=== PATIENT | female | born 1990 | race Caucasian/White ===

== ENCOUNTER 2025-03-10 21:09 | Emergency (ER) | payer MEDICAID, SELFPAY ==
[2025-03-10 21:27] VITALS: BP 97/68; PULSE 96; RESP 18; TEMP 36.7; O2SAT 96; BMI 44.6
[2025-03-10 21:55] LABS: MANUAL DIFF FLAG NO
[2025-03-10 21:56] LABS: Hematocrit 40.9 % (37.0-47.0); Hemoglobin 14.2 g/dl (12.0-16.0); Imm Gran Abs Auto 0.04 X10*3/uL (0.00-0.03); Imm Gran Pct Auto 0.3 % (0.0-0.4); Lymphocytes Absolute Auto 3.4 X10*3/uL (1.2-4.9); Mean Corpuscular HGB Conc 34.7 g/dl (31.0-35.0); Mean Corpuscular Hemoglobin 30.7 pg (27.0-33.0); Mean Corpuscular Volume 88.5 fL (80.0-98.0); NRBC Abs Auto 0.000 X10*3/uL (0.0-0.012); NRBC Pct Auto 0.0 /100WBC (0.0-0.2); Platelet Count 263 X10*3/uL (160-400); Red Blood Count 4.62 X10*6/uL (4.20-5.50); White Blood Count 12.3 X10*3/uL (4.8-10.8)
[2025-03-10 21:58] LABS: UPreg QC Valid YES
[2025-03-10 22:16] LABS: Alanine Aminotransferase 70 U/L (0-31); Albumin Level 4.4 g/dL (3.5-5.0); Alkaline Phosphatase 81 U/L (39-117); Anion Gap 11 (12-20); Aspartate Amino Transferase 51 U/L (5-31); Blood Urea Nitrogen 16 mg/dL (9-16); Calcium 9.1 mg/dL (8.4-10.2); Carbon Dioxide 24 mmol/L (22-29); Chloride 109 mmol/L (96-108); Creatinine Clr Calc Pharmacy 120.7; Estimated Glomerular Filt Rate > 60; Lipase 33 U/L (8-78); Potassium 3.6 mmol/L (3.3-5.1); Sodium 140 mmol/L (135-145); Total Protein 7.6 g/dL (6.5-8.0)
== END 2025-03-11 03:51 | disposition left against medical advice (07) ==
LOC: HO.ED 03-11 03:32
PROVIDERS: Emergency Provider Emergency Medicine
DX: R10.9 Unspecified abdominal pain (principal); R50.9 Fever, unspecified; R51.9 Headache, unspecified; Z53.21 Procedure and treatment not carried out due to patient leaving prior to being seen by health care provider
CPT/HCPCS: 36415; 80053; 81025; 83690; 85025; 99281

== ENCOUNTER 2025-03-31 09:43 | Emergency (ER) | payer MEDICAID, SELFPAY ==
--- NOTE | ~2025-03-31 | XR_ITS ---
EXAMINATION: XR CHEST CLINICAL INFORMATION: shortness of breath, asthma COMPARISON: None available. TECHNIQUE: 2 views of the chest were obtained. FINDINGS: The cardiac, hilar, and mediastinal contours are normal. The lungs are clear bilaterally. There is no pneumothorax or pleural effusion. There is no focal osseous or soft tissue abnormality. XR/XR chest 2V IMPRESSION: Normal chest. Electronically signed by: Jeremiah Ortiz MD 03/31/2025 10:35 AM EDT
[2025-03-31 10:13] VITALS: BP 114/56; PULSE 87; RESP 18; TEMP 37; O2SAT 98; BMI 45.5
--- NOTE | 2025-03-31 10:15 | ED_ITS ---
HPI - General Adult General Chief complaint: Dyspnea Stated complaint: asthma Related Data Allergies Allergy/AdvReac Type Severity Reaction Status Date / Time latex Allergy Rash Verified 03/31/25 10:16 [facility] Social History Social History Advance Directives: No Advance Directives Information Provided: No Physical Exam ED Vital Signs: BMI result Body Mass Index 45.5 Course Course Course Narrative: This is a Rapid Medical Examination (RME) performed by Cele Fine PA-C in triage. Full HPI, ROS, assessment and treatment plan per primary provider in the Main ED. Hx: 34 yo F here w/ cocnerns of asthma exacerbation. ran out of her rescue inhaler 1 week ago. no known sick contacts. PE/vitals: no respiratory distress, no tripoding, b/l expiratory wheezes Plan: viral swabs, CXR, bronch protocol Reevaluation(s) Reevaluation #1: Patient left the emergency department before myself or any of the other clinicians could review or explain physical exam findings, test results, need or lack there of for additional testing, treatment options, or a treatment plan. Medications Administered Discontinued Medications Generic Name Dose Route Start Last Admin Trade Name Freq PRN Reason Stop Dose Admin Albuterol Sulfate 8 puff 03/31/25 10:44 03/31/25 10:47 Albuterol Sulfate 90 Mcg 8 Gm Inhaler INHALE 03/31/25 10:45 8 puff ONCE ONE Administration Medical Decision Making Lab Data Labs: Lab Results 03/31/25 Range/Units 10:29 Influenza Type A (PCR) NEGATIVE (Negative) Influenza Type B (PCR) NEGATIVE (Negative) RSV RNA Qual (PCR) NEGATIVE (Negative) SARS-CoV-2 RNA (RT-PCR) NEGATIVE (Negative) Discharge Plan Discharge Clinical Impression: Asthma with exacerbation Patient Disposition: Left Without Being Seen Discharge Date/Time: 03/31/25 14:39
[2025-03-31] MEDS: Albuterol Sulfate 90 MCG 8 GM INHALER 8 PUFF INHALE (10:47)
[2025-03-31 10:49] VITALS: PULSE 90; RESP 21; O2SAT 99
[2025-03-31 11:16] LABS: Resp Syncy Virus RNA Qual PCR NEGATIVE (Negative); SARS COV2 PCR INHOUSE NEGATIVE (Negative)
--- NOTE | 2025-03-31 11:21 | PC.NURSE ---
patient called from waiting room , no answer
--- OUTSIDE RECORDS SUMMARY | 2025-03-31 14:59 | XMS_ITS ---
Author Name [facility] Organization Unknown History of Medication Use Medication Directions Dispensed Refills Start Date End Date Stat us oxyCODONE (ROXICODONE) 10 mg immediate release tablet Take 0.5 tablets (5 mg total) by mouth 4 times daily (every 6 hours) as needed for severe pain. Max Daily Amount: 20 mg 10/21/2021 active acetaminophen (TYLENOL) 325 MG tablet Take 3 tablets (975 mg total) by mouth 3 times daily (every 8 hours) as needed for mild pain. 10/19/2021 active aluminum-magnesium hydroxide-simethicone (MYLANTA-MAX) 400-400-40 mg/5 mL suspension Take 15 mL by mouth 4 times daily (every 6 hours) as needed for indigestion or heartburn. 10/19/2021 active gabapentin (NEURONTIN) 300 MG capsule Take 1 capsule (300 mg total) by mouth 3 (three) times a day. 10/19/2021 active PANTOprazole (PROTONIX) 40 MG EC tablet Take 1 tablet (40 mg total) by mouth daily. 10/19/2021 active Allergies Allergen Reaction Severity Comment Documented Date Source Statu s SHELLFISH-DERIVE D PRODUCTS ANAPHYLAXIS 10/14/2021 [facility] active SHRIMP ANAPHYLAXIS Throat closses 10/12/2021 [facility] ac tive PEANUTS ANAPHYLAXIS 02/18/2019 [facility] active LATEX RASH/DERMATITIS [facility] Problems Problem Status Onset Date Problem Type Date of Resoluti on Source Muscle strain active 2019-02-19 ProblemAct [facility] T Right knee pain active 2021-10-09 ProblemAct [facility] Sepsis active 2021-10-10 ProblemAct [facility] Encounters Encounter Type Encounter Reason Primary Diagnosis Location Date Ambulatory Acute hematogeno us osteomyelitis, right femur [facility] 11/25/2021 Ambulatory Acute hematogeno us osteomyelitis, right femur [facility] 11/25/2021 [facility] 10/27/2021 [facility] 10/21/2021 Inpatient Pain in right knee [facility] 10/09/2021 Care Team Organization Name Specialty Phone Email Start Date End [facility] 12/12/2023 01/14/2025 [facility] 05/06/2023 024 [facility] 02/24/2023 [facility] TIFFANIE DENNY IS Primary Care 11/25/2021 04/01/2024 [facility] Samuel Denny [facility] 10/09/2021 12/08/2021 [facility] NO PCP Primary Care 10/09/2021 12/08/2021
--- OUTSIDE RECORDS SUMMARY | 2025-03-31 14:59 | XMS_ITS | Clinical Summary ---
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 84 tablet 2 Active aluminum-magnes ium hydroxide-simet hicone (MYLANTA-MAX) 400-400-40 mg/5 mL suspensionIndic ations:Staphylo coccal arthritis of right knee (HCC) Take 15 mL by mouth 4 times daily (every 6 hours) as needed for indigestion or heartburn. 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 30 tablet 2 Active ceFAZolin (ANCEF) 2 GM/20ML premixed syringeIndicati ons:Staphylococ jimbo arthritis of right knee (HCC) Infuse 20 mL (2 g total) into a venous catheter 3 times daily (every 8 hours). 1 each 2 Active gabapentin (NEURONTIN) 300 MG capsuleIndicati ons:Staphylococ jimbo arthritis of right knee (HCC) Take 1 capsule (300 mg total) by mouth 3 (three) times a day. 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 43 g 2 Active enoxaparin (LOVENOX) 40 MG/0.4ML injectionIndica tions:Staphyloc occal arthritis of right knee (HCC) Inject 0.4 mL (40 mg total) under the skin twice daily (every 12 hours). 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 Max Daily Amount: 20 mg 20 tablet 2 Active Active Problems Problem Noted Date Diagnosed Date Right knee pain 10/09/2021 Overview (10/14/2021): Added automatically from request for surgery [id number] Muscle strain 02/19/2019 Resolved Problems Problem Noted Date Diagnosed Date Resolved Date Sepsis 10/10/2021 10/26/2023 Social History Tobacco Use Types Packs/Day Years Used Date Smoking Tobacco: Never Smokeless Tobacco: Never Comments Unknown Sex and Gender Information Value Date Recorded Sex Assigned at Not on file Legal Sex Female 10:00 PM EDT Gender Identity Not on file Sexual Orientation Not on file Last Filed Vital Signs Vital Sign Reading Time Taken Comments Blood Pressure 125/70 12/08/2021 12:10 PM EDT Pulse 90 12/08/2021 12:10 PM EDT Temperature 36.4 C (97.6 F) 12/08/2021 12:10 PM EDT Respiratory Rate 18 12/08/2021 12:10 PM EDT Oxygen Saturation 98% 12/08/2021 12:10 PM EDT Inhaled Oxygen Concentration - - Weight 109 kg (241 lb) 11/25/2021 2:19 PM EDT Height 160 cm (5' 3 ) 11/25/2021 2:19 PM EDT Body Mass Index 42.69 11/25/2021 2:19 PM EDT Plan of Treatment Health Maintenance Due Date Last Done Comments Hepatitis C Virus Screening 1990 HIV Screening 2003 DTaP/Tdap/Td Vaccines (1 - Tdap) 2009 Hepatitis B Vaccines (1 of 3 - 19+ 3-dose series) 2009 Pap Smear (Ages 21-65) 2011 HPV Vaccines (1 - 3-dose SCDM series) 2017 COVID-19 Vaccine ( - 2023- season) 2024 Influenza Vaccine 03/14/2025 05/15/2019, , 06/26/2015, Additional history exists Pneumococcal Vaccine: Pediatric (0-5 Years) and At-Risk Patients (6 to 49 Years) Aged Out No longer eligible based on patient's age to complete this topic Insurance [facility]IC[place] OUT OF NETWORK COMMERCIAL [facility] Advance Directives * Full Code (Latest Code Status on File) Date Activated Date Inactivated Comments 10/14/2021 5:23 PM * Full Code Date Activated Date Inactivated Comments 10/10/2021 6:40 AM 10/14/2021 5:23 PM Question Answer Comments Decision Thoroughly Discussed with: Patient Care Teams Grants Director Relationship Specialty Start Date End Date Samuel Rosales MD PCP - General Internal Medicine 10/10/21
--- OUTSIDE RECORDS SUMMARY | 2025-03-31 14:59 | XMS_ITS | Clinical Summary ---
Author Organization [facility] Address [address] [place] [address] Care Team Providers Care Burner Hand Name Role Phone Samuel Rosales MD Primary Care Provider [phone] Allergies Active Allergy Reactions Criticality Noted Date Comments Latex Rash Low 02/18/2019 Peanuts Anaphylaxis High 02/18/2019 Medications Medication Sig Dispensed Refills Start Date End Date Status diclofenac (VOLTAREN) 50 MG EC tablet Take 1 tablet (50 mg total) by mouth 2 (two) times a day. 20 tablet 0 09/21/2021 Active methocarbamol (ROBAXIN) 750 MG tabletIndications:Ri ght leg pain Take 1 tablet (750 mg total) by mouth 3 (three) times a day as needed (muscle spasm). 12 tablet 0 09/24/2021 Active naproxen (NAPROSYN) 500 MG tablet Take 1 tablet (500 mg total) by mouth 2 (two) times a day with meals. 20 tablet 0 10/01/2021 Active lidocaine (LIDODERM) 5 % Place 1 patch onto the skin daily. Remove & Discard patch within 12 hours or as directed by MD 30 patch 0 10/01/2021 Active traMADol (ULTRAM) 50 MG tablet Take 50 mg by mouth every 6 (six) hours as needed for pain. 8 tablet 0 10/01/2021 Active ibuprofen 400 MG tabletIndications:Ac christian pain of right knee Take 1.5 tablets (600 mg total) by mouth every 8 (eight) hours as needed for pain. 30 tablet 0 10/04/2021 Active Active Problems Problem Noted Date Diagnosed Date Class 3 severe obesity due t o excess calories without serious comorbidity with body mass index (BMI) of 45.0 to 49.9 in adult 02/20/2020 Overview: Considering sleeve gastrectomy 02/2020 Gallstones 11/13/2013 Asthma 12/21/2010 Social History Tobacco Use Types Packs/Day Years Used Date Smoking Tobacco: Never Assessed Sex and Gender Information Value Date Recorded Sex Assigned at Female 06/10/2021 1:49 PM EDT Gender Identity Not on file Sexual Orientation Not on file Job Start Date Occupation Industry Not on file Not on file Not on file Last Filed Vital Signs Vital Sign Reading Time Taken Comments Blood Pressure 110/73 10/04/2021 9:33 AM EST Pulse 82 10/04/2021 9:33 AM EST Temperature 36.6 C (97.8 F) 10/04/2021 9:33 AM EST Respiratory Rate 18 10/04/2021 9:33 AM EST Oxygen Saturation 100% 10/04/2021 9:33 AM EST Inhaled Oxygen Concentration - - Weight 112.9 kg (249 lb) 10/05/2021 12:33 PM EST Height 160 cm (5' 3 ) 11/17/2021 2:01 PM EDT Body Mass Index 44.11 10/05/2021 12:33 PM EST Plan of Treatment Health Maintenance Due Date Last Done Comments Hepatitis C Screening 1990 COVID-19 Vaccine (#1) 01/19/1991 Depression Screening 2002 BMI Counseling 2008 Preventative Health Evaluation 2008 Cervical Cancer Screening (Pap Smear) 2011 DTap / Tdap / Td (3 - Td or Tdap) 12/21/2020 12/21/2010, 06/05/2003 Influenza Vaccine (#1) 2025 9, 09/01/2016, 06/26/2015, Additional history exists Hepatitis B Vaccines Completed 11/16/1995, 03/14/1995, 10/17/1994 Pneumococcal Vaccine Aged Out No long er eligible based on patient's age to complete this topic RSV Ped < 20 months Aged Out No longe r eligible based on patient's age to complete this topic Care Teams Burner Hand Relationship Specialty Start Date End Date Samuel Rosales MD PCP - General Internal Medicine 10/01/21
== END 2025-03-31 14:39 | disposition left against medical advice (07) ==
LOC: HO.ED 14:13
PROVIDERS: Physician Assistant Medical; Emergency Provider Emergency Medicine
DX: J45.901 Unspecified asthma with (acute) exacerbation (principal); R06.02 Shortness of breath
CPT/HCPCS: 71046; 87637; 94640; 99283; 99284

== ENCOUNTER → 2025-03-31 10:16 | Outpatient (BNV) | payer MEDICAID, SELFPAY | PROVIDERS: Visit Provider Radiology Diagnostic Radiology | DX: R06.02 Shortness of breath (principal); J45.909 Unspecified asthma, uncomplicated | CPT/HCPCS: 71046 ==

== ENCOUNTER 2025-06-17 17:23 | Emergency (ER) | payer OTHER, SELFPAY ==
--- NOTE | ~2025-06-17 | XR_ITS ---
CLINICAL HISTORY: cough 1 view chest x-ray Comparison: CR/SR - XR CHEST 2 VIEWS - 03/31/25 10:29 EDT Findings: The lungs are clear. Normal size heart. No acute fracture. IMPRESSION: 1. No acute findings. This document has been electronically signed by: Dina Wisdom MD on 06/17/2025 22:04:04
[2025-06-17 17:33] VITALS: BP 149/74; PULSE 86; RESP 20; TEMP 36.7; O2SAT 96; BMI 45.2
--- NOTE | 2025-06-17 17:35 | ED.GENADULT ---
HPI - General Adult General Chief complaint: Upper Respiratory Symptoms Stated complaint: left side of face and throat hurt Time Seen by Provider: 06/17/25 21:01 Source: patient Limitations: no limitations History of Present Illness ED Provider: Laura Hale PA-C HPI narrative: 34-year-old female presents with cough and cold symptoms x3 days. Associated dry repetitive cough, sore throat, left ear pain and nasal congestion. Denies known fever. The patient does not use tobacco. Related Data Previous Rx's ?Medication ?Instructions ?Recorded amoxicillin 500 mg capsule 500 mg PO Q12H #19 caps 06/17/25 Allergies Allergy/AdvReac Type Severity Reaction Status Date / Time latex Allergy Rash Verified 06/17/25 17:37 Review of Systems Review of Systems: Yes all other systems are reviewed and are negative Constitutional: Constitutional: Denies fatigue, Denies fever(s) and Reports malaise ENT: Reports otalgia, Reports nasal congestion and Reports sore throat Cardiovascular: Cardiovascular: Denies chest pain and Reports dyspnea Respiratory: Respiratory: Reports chest congestion, Reports cough, Reports dyspnea and Denies wheezing Endocrine: Endocrine: Denies fatigue Allergic/Immunologic: Allergic/Immunologic: Denies wheezing [facility] Past Medical History Attestation statement: The following information was validated with the patient. Social History Social History Smoked in Last 30 Days: Yes Substance Use Type: Marijuana Advance Directives: No Advance Directives Information Provided: No Do you have a plan to hurt others: No Plan Physical Exam ED Vital Signs: Vital Signs - 24 hr 06/17/25 17:33 06/17/25 21:00 06/17/25 22:27 Temperature 98.1 F 97.9 F Pulse Rate 86 95 68 Respiratory Rate 20 18 18 Blood Pressure 149/74 H 102/53 L 125/59 L Pulse Oximetry 96 96 98 Oxygen Delivery Method Room Air Room Air Room Air BMI result Body Mass Index 45.2 Const Other: Alert well-appearing Orientation/consciousness: patient oriented x3 HENMT Other: Oropharynx is erythematous without exudate uvula midline no sublingual fluctuance no swelling inferior to the jawline. The left TM is opaque bulging with the overlying erythema, the entire exam was uncomfortable positive tragal tenderness Resp Other: Lungs clear to auscultation no wheezing Effort & Inspection: normal respiratory effort Cardio Other: Normal peripheral perfusion Skin Other: Warm dry no rash Neuro General: patient oriented x3, gait normal, no focal motor deficits and CN's II-XI intact bilaterally Psych Other: Cooperative Course Course Course Narrative: This is a rapid medical exam performed by Ronal Mace NP: Additional HPI, ROS, PE not included below will be deferred to primary provider. Patient is a 34y/o F presenting with complaint of left ear and facial pain and sore throat for a few days. Also reports cough and congestion. Plan: strep and viral swabs Medications Administered Discontinued Medications Generic Name Dose Route Start Last Admin Trade Name Ke PRN Reason Stop Dose Admin Amoxicillin 500 mg 06/17/25 21:23 06/17/25 22:13 Amoxicillin 500 Mg Capsule PO 06/17/25 21:24 500 mg ONCE ONE Administration Dexamethasone Sodium Phosphate 10 mg 06/17/25 21:23 06/17/25 22:13 Dexamethasone Sod Phosphate 10 Mg/Ml Vial PO 06/17/25 21:24 10 mg ONCE ONE Administration Ketorolac Tromethamine 15 mg 06/17/25 21:23 06/17/25 22:13 Ketorolac Tromethamine 15 Mg/Ml Vial IM 06/17/25 21:24 15 mg ONCE ONE Administration Medical Decision Making Medical Decision Making MDM Narrative: 34-year-old female presents with cough and cold symptoms x3 days. Associated dry repetitive cough, sore throat, left ear pain and nasal congestion. Denies known fever. The patient does not use tobacco. No relevant chronic issues History: Per patient I have considered the following differential diagnoses: Bronchitis, pneumonia, viral syndrome, strep pharyngitis, SOURCING ASSOCIATE, RPA, om, OE, serous otitis Plan: Viral panel and strep screen ordered from triage, adding on a chest x-ray. Doubtful to be pneumonia given the wide constellation of symptoms, there was no evidence of RPA or SOURCING ASSOCIATE on my exam, she does have otitis media as well. We will treat accordingly. Giving a dose of Decadron for her throat inflammation and swelling, starting on amoxicillin, giving Toradol for pain. I have independently reviewed the following tests: Labs: Viral panel negative, strep screen neg Chest x-ray:Findings: The lungs are clear. Normal size heart. No acute fracture. IMPRESSION: 1. No acute findings. Differential Diagnosis Differential Diagnoses: The differential diagnosis associated with the presentation includes See medical decision-making Admission/Observation Consideration of admission/observation: Escalation of care including admission/observation considered Not applicable Lab Data MDM Lab Attestation statement: I reviewed the patient's lab results. Labs: Lab Results 06/17/25 Range/Units 17:57 COVID-19 ([facility]) Negative (Negative) COVID-19 Clin Com See Note Influenza Type A (LUIS) Negative (Negative) Influenza Type B (LUIS) Negative (Negative) Influenza A & B Note See Note S. pyogenes GrpA LUIS Negative (Negative) Radiology Impression Discussion of test interpretation with radiology: I have reviewed the radiologist's reading. Discharge Plan Discharge Clinical Impression: Otitis media, Pharyngitis Patient Disposition: Home, Self-Care Instructions: Pharyngitis (ED), Ear Infection (ED) Additional Instructions: You were tested for COVID , and influenza, the viral panel was negative. You were screened for strep throat, that was negative as well. The chest x-ray is clear, you do not have pneumonia. You were found to have an ear infection. See home care instructions. Take the amoxicillin as directed. You were given medication today to help alleviate your throat pain. You can continue to use [id number] ibuprofen 600 mg taken every 6 hours with food. Warm saltwater gargles are very beneficial to alleviate throat pain. Follow up with your primary care as needed. You should also be taking an [id number]-[id number] antihistamine, either Claritin or Zyrtec, to help alleviate the fluid within the inner ear, that causes the pressure and pain. Prescriptions: New amoxicillin 500 mg capsule 500 mg PO Q12H Qty: 19 0RF Stand Alone Forms: Work/School Release Interventions: ED Discharge Assessment Last Done: 06/17/25 22:27 Discharge Date/Time: 06/17/25 22:28 Print Language: Portuguese
[2025-06-17 18:21] LABS: COVID-19 Test Negative (Negative); IDNOW Serial# 08D9AD1C; IDNOW Serial# 55D5AD1C; Strep A Nucleic Acid Negative (Negative)
[2025-06-17 18:22] LABS: IDNOW Serial# 58CA691E; Influenza B2 Negative (Negative)
[2025-06-17 21:00] VITALS: BP 102/53; PULSE 95; RESP 18; O2SAT 96
--- OUTSIDE RECORDS SUMMARY | 2025-06-17 21:11 | XMS_ITS | Clinical Summary ---
Author Organization [facility] Address [address] [place] [address] Care Team Providers Care Credit Historian Name Role Phone Samuel Rosales MD Primary Care Provider Un available Allergies Active Allergy Reactions Criticality Noted Date Comments Latex Rash/Dermatitis Low 02/18/2019 Peanuts Anaphylaxis High 02/18/2019 Shellfish Protein-Containing Drug Products Anaphylaxis High 10/14/2021 Shrimp Anaphylaxis High 10/12/2021 Throat closses Medications [...] (10/14/2021): Added automatically from request for surgery [id number] Muscle strain 02/19/2019 Resolved Problems Problem Noted [...] series) 2009 Pap Smear (Ages 21-65) 2011 Influenza Vaccine 03/14/2025 05/15/2019, , 06/26/2015, Additional history exists COVID-19 Vaccine ( season) 2025 HPV Vaccines (No Doses Required) Completed Pneumococcal Vaccine: Pediatric (0-5 Years) and At-Risk Patients (6 to 49 Years) Aged Out No longer eligible based on patient's age to complete this topic Insurance [facility] [place] MEDICARE OUT OF NETWORK Member Subscriber Plan / Payer (Ef fective 2014-Present) Name:Trish Denton Relation to Subscriber:Self Name:Trish Denton Payer ID:Not on file Group ID:Not on file Type:Not on file Address: . [address] [facility] Advance Directives * Full Code (Latest Code Status on File) Date Activated Date Inactivated Comments 10/14/2021 5:23 PM * Full Code Date Activated Date Inactivated Comments 10/10/2021 6:40 AM 10/14/2021 5:23 PM Question Answer Comments Decision Thoroughly Discussed with: Patient Care Teams Credit Historian Relationship Specialty Start Date End Date Samuel Rosales MD PCP - General Internal Medicine 10/10/21
--- OUTSIDE RECORDS SUMMARY | 2025-06-17 21:11 | XMS_ITS | Encounter Summary ---
Author Organization [facility] Address [address] [place] [address] Care Team Providers Care Extra Hand Name Role Phone Samuel Rosales MD Primary Care Provider Un available Encounter Details Date Type Department Care Team (Late st Contact Info) Description 01/21/2022 Scanned Document [facility] [place] [address] [place] [address] [address] [place] [id number] Ye Monzon MD [address] [place] [address] [address], [place] [address] Social History Tobacco Use Types Packs/Day Years Used Date Smoking Tobacco: Never Smokeless Tobacco: Never Comments Unknown Sex and Gender Information Value Date Recorded Sex Assigned at Not on file Legal Sex Female 10:00 PM EDT Gender Identity Not on file Sexual Orientation Not on file documented as of this encounter Plan of Treatment Not on file documented as of this encounter Visit Diagnoses Not on filedocumented in this encounter Care Teams Extra Hand Relationship Specialty Start Date End Date Samuel Rosales MD PCP - General Internal Medicine 10/10/21 documented as of this encounter
--- OUTSIDE RECORDS SUMMARY | 2025-06-17 21:11 | XMS_ITS | Clinical Summary ---
Author Organization [facility] Address [address] [place] [address] Care Team Providers Care Planning Rn Name Role Phone Samuel Rosales MD Primary Care Provider [phone] Allergies Active Allergy Reactions Criticality Noted Date [...] age to complete this topic Care Teams Planning Rn Relationship Specialty Start Date End Date Samuel Rosales MD PCP - General Internal Medicine 10/01/21
[2025-06-17 22:27] VITALS: BP 125/59; PULSE 68; RESP 18; TEMP 36.6; O2SAT 98
== END 2025-06-17 22:28 | disposition home or self-care (01) ==
PROVIDERS: Registered Nurse Emergency; Emergency Provider Emergency Medicine
DX: J02.9 Acute pharyngitis, unspecified (principal); H66.92 Otitis media, unspecified, left ear
CPT/HCPCS: 71045; 87502; 87635; 87651; 96372; 99284; J1100; J1885

== ENCOUNTER → 2025-06-17 21:07 | Outpatient (BNV) | payer MEDICARE, MEDICAID, SELFPAY | PROVIDERS: Emergency Provider Emergency Medicine; Visit Provider Student in an Organized Health Care Education/Training Program | DX: R05.9 Cough, unspecified (principal) | CPT/HCPCS: 71045 ==